=== PATIENT | female | born 1980 | race Caucasian/White ===

== ENCOUNTER 2024-02-05 19:04 | Emergency (ER) | payer BC, SELFPAY ==
[2024-02-05] MEDS: ATIVAN 2 MG IM (19:44)
[2024-02-05] MEDS: HALDOL 5 MG IM (19:44)
[2024-02-05 20:48] LABS: Hematocrit 35.9 % (37.0-47.0); Hemoglobin 12.6 g/dL (12.0-16.0); Mean Corp Hgb Conc. 35.1 g/dL (33.0-37.0); Mean Corpuscular Hgb 33.8 pg (27.0-31.0); Mean Corpuscular Volume 96.2 fL (81.0-99.0); Mean Platelet Volume 9.6 fL (7.4-10.4); Platelet Count 229 10^3/uL (130-400); Red Blood Cell Count 3.73 10^6/uL (4.20-5.40); Red Cell Dist. Width 11.9 % (11.5-14.5); White Blood Cell Count 6.2 10^3/uL (4.8-10.8)
[2024-02-05 21:05] LABS: Chloride 100 mmol/L (98-107); Potassium 3.2 mmol/L (3.5-5.1); Sodium 139 mmol/L (135-145)
[2024-02-05 21:06] LABS: ALT (SGPT) 23 U/L (0-35); AST (SGOT) 36 U/L (14-36); Acetaminophen < 10 ug/ml (10-30); Albumin 4.5 g/dl (3.5-5.0); Alcohol 36 mg/dl; Alkaline Phosphatase 39 U/L (38-126); Blood Urea Nitrogen 17 mg/dl (7-17); Calcium 9.4 mg/dl (8.4-10.2); Carbon Dioxide 21 mmol/L (22-30); Glucose 86 mg/dl (70-99); Salicylate < 1.0 mg/dl (2.0-20.0); Total Bilirubin 0.6 mg/dl (0.2-1.3); Total Protein 6.6 g/dl (6.3-8.2); eGFR > 60.00
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
[2024-02-05 21:23] VITALS: BP 91/56
[2024-02-05 23:34] LABS: HCG, Serum Qualitative Screen Negative
[2024-02-06 04:18] LABS: COVID-19 Antigen Negative (Negative)
[2024-02-06 05:30] VITALS: BP 97/75
== END 2024-02-06 05:31 ==
LOC: EMR 19:04
PROVIDERS: EMERGENCY PHYSICIAN Emergency Medicine
DX: F29 Unspecified psychosis not due to a substance or known physiological condition (principal)
CPT/HCPCS: 99285; 96372 ×2; 80053; 80143; 80179; 82077; 84703; 85027; 87811

== ENCOUNTER → 2024-05-07 11:34 | Outpatient (REF) | payer BC, SELFPAY | LOC: PAVMRI 11:34 | PROVIDERS: ATTENDING PHYSICIAN Nurse Practitioner Family; FAMILY PHYSICIAN Nurse Practitioner Family | DX: E22.1 Hyperprolactinemia (principal) | CPT/HCPCS: 70553; A9575 ==

== ENCOUNTER → 2024-06-30 14:38 | Outpatient (REF) | payer OTHER, SELFPAY ==
[2024-07-01 14:36] LABS: Mumps Virus IgG Positive; Rubeola (Measles) IgG Positive; Varicella Zoster IgG (VZV) Positive
[2024-07-01 18:34] LABS: Hepatitis B Surface Antibody Negative
[2024-07-01 19:13] LABS: Rubella Positive
== END ==
LOC: OHS 14:38
PROVIDERS: ATTENDING PHYSICIAN Nurse Practitioner Family
DX: Z23 Encounter for immunization (principal)
CPT/HCPCS: 36415; 86706; 86735; 86762; 86765; 86787

== ENCOUNTER 2024-11-30 14:53 | Emergency (ER) | payer BC, SELFPAY ==
[2024-11-30 14:58] VITALS: BP 152/94
[2024-11-30 15:51] LABS: % Basophils 1.2 % (0-2); % Eosinophils 0.8 % (0-6); % Immature Granulocytes 0.3 % (0-0.5); % Lymphocytes 32.9 % (20.5-51.1); % Neutrophils 57.8 % (42.2-75.2); Absolute Basophils 0.1 10^3/uL (0-0.2); Absolute Eosinophils 0.1 10^3/uL (0-0.7); Absolute Monocytes 0.4 10^3/uL (0.1-0.6); Absolute Neutrophils 3.5 10^3/uL (1.4-6.5); Hematocrit 41.1 % (37.0-47.0); Hemoglobin 14.1 g/dL (12.0-16.0); Mean Corp Hgb Conc. 34.3 g/dL (33.0-37.0); Mean Corpuscular Hgb 31.8 pg (27.0-31.0); Mean Corpuscular Volume 92.6 fL (81.0-99.0); Mean Platelet Volume 9.2 fL (7.4-10.4); Nucleated Red Blood Cells % 0 %; Platelet Count 274 10^3/uL (130-400); Red Blood Cell Count 4.44 10^6/uL (4.20-5.40); Red Cell Dist. Width 12.2 % (11.5-14.5)
[2024-11-30 16:12] LABS: ALT (SGPT) 15 U/L (0-35); AST (SGOT) 19 U/L (14-36); Albumin 5.1 g/dl (3.5-5.0); Alkaline Phosphatase 45 U/L (38-126); Blood Urea Nitrogen 19 mg/dl (7-17); Calcium 9.7 mg/dl (8.4-10.2); Carbon Dioxide 25 mmol/L (22-30); Chloride 100 mmol/L (98-107); Glucose 116 mg/dl (70-99); Potassium 3.9 mmol/L (3.5-5.1); Sodium 137 mmol/L (135-145); Total Bilirubin 0.9 mg/dl (0.2-1.3); Total Protein 7.3 g/dl (6.3-8.2); eGFR > 60.00
== END 2024-11-30 15:17 ==
LOC: EMR 14:53
PROVIDERS: EMERGENCY PHYSICIAN Emergency Medicine
DX: R51.9 Headache, unspecified (principal)
CPT/HCPCS: 80053; 85025

== ENCOUNTER 2024-11-30 15:27 | Emergency (ER) | payer SELFPAY ==
[2024-11-30 15:33] VITALS: BP 152/94
--- NOTE | 2024-11-30 18:29 | ED.GENMED ---
History of Present Illness
General
Chief Complaint: Headache
Source: patient
Exam Limitations: none
Time Seen by Provider: 11/30/24 18:07
History of Present Illness
History of Present Illness:
This is a 44 year old female that comes in with c/o headache. States that she has a headache across her forehead. State that she just has felt unwell. State that this started a couple of days ago. State that she has not taken anything for pain as
she doesn't like to take medication. Denies any fever, chills, chest pain, SOB, abd pain, nausea, vomiting, diarrhea, dizziness, urinary burning.
Past History
Past History
ED Past Medical History: Other (UTI,)
ED Past Surgical History: Gynecological (D&E Hysteroscopies X 2) and Other (Hernia repair)
Social History
Tobacco: Non-smoker
Alcohol: Occasional
Personal:
Living: with family
Review of Systems
Review of Systems
All Other Systems: ROS reviewed and negative except as documented in HPI and ROS
Constitutional: Reports no symptoms; Denies fever or chills
EENT: Reports no symptoms
Respiratory: Reports no symptoms; Denies cough or trouble breathing
Cardiac: Reports no symptoms; Denies chest pain
ABD/GI: Reports no symptoms; Denies abdominal pain, nausea, vomiting or diarrhea
: Reports no symptoms; Denies dysuria or urgency
Musculoskeletal: Reports no symptoms
Skin: Reports no symptoms
Neurological: Reports headache; Denies dizzy
Psychiatric: Reports no symptoms
Phy Exam
General Physical Exam
General Presentation: well appearing and no apparent distress
General age: appears stated age
General Skin: warm and dry
General Habitus: normal
General Mental: alert
General Hydration: appears well hydrated
ENT Exam
ENT Exam: TM's normal, pharynx normal and neck supple
Eye Exam
Eye Exam: EOMI
Cardiovascular Exam
Cardiovascular Exam: regular rate/rhythm, no edema, no murmur and normal peripheral pulses
Pulmonary Exam
Pulmonary Exam: lungs clear, no respiratory distress, no rales, chest non tender, no crackles, no rhonchi, no wheezing and no cough
Gastrointestinal Exam
Gastrointestinal Exam: normal bowel sounds, non tender, soft, no organomegaly, no pulsatile mass and non distended
Musculoskeletal Exam
Musculoskeletal Exam: full ROM and no edema
Skin Exam
Skin Exam: normal color, warm/dry, no rash and no petechia
Psychiatric Exam
Psychiatric Exam: normal mood/affect
Course
Orders/Labs/Results
Orders:
11/30/24 15:34
11/30/24 15:34
Vital Signs
Initial and Last Documented VS:
Initial Vital Signs
Temp Pulse Resp BP Pulse Ox
98.7 F 105 20 152/94 98
11/30/24 15:33 11/30/24 15:33 11/30/24 15:33 11/30/24 15:33 11/30/24 15:33
Last Documented Vital Signs
Temp Pulse Resp BP Pulse Ox
98.7 F 105 20 152/94 98
11/30/24 15:33 11/30/24 15:33 11/30/24 15:33 11/30/24 15:33 11/30/24 15:33
MDM/Problems Addressed
Differential Diagnosis Includes:
Headache, COVID.
MDM/Problems Addressed:
This is a 44 year old female that comes in with c/o headache across her forehead. States that she has felt unwell for the past couple of days. Patient states that she does not like to take medication and that sh called her to pick her up.
Explained to patient that if she is willing to stay a CT scan of the head would be done, IV fluids, blood work and medicate for pain. Patient refused all this. Explained to patient that she will need to follow up with the family doctor. Explained
that she can take Tylenol and Ibuprofen and alternate this for pain. Patient to return with any concerns.
Chronic conditions affecting care:
NA
Acute Exacerbation and/or Progression of Chronic Illness:
NA
*Pulse Oximetry
Patient hypoxic: no
*EKG
Interpreted by ED Provider?: NA
Rate: EKG- N/A
*Associate Professor Of [employer] Interpretation
Rate: Associate Professor [employer]- N/A
*Critical Care Note
Total Time (30-74mins, 75-104mins- exclusive of procedures): Not Applicable
ED Attending Note
-
Portions of this chart may have been created with voice recognition software.� Occasional wrong word or��sound alike� substitutions may have occurred due to the inherent limitations of voice recognition software.
Discharge Plan
Departure
Patient Disposition: Home (Routine Discharge)
Date of Disposition: 11/30/24
Time of Disposition: 18:29
Patient with high blood pressure during this ER visit?: Yes
Condition: Good
Covid-19: Not Applicable
Discharge Problem:
Headache
Instructions: Headache, Adult (DC), BLOOD PRESSURE
Activity Restrictions/Additional Instructions:
As discussed, you have been offered blood work and a CT scan and have decided to go home. Please follow up with the family doctor for further evaluation. You may use Tylenol 1000mg every 6 hours for pain and alternate with Ibuprofen 600mg every 6
hours with food. IF YOU HAVE ANY OTHER CONCERNS PLEASE RETURN TO THE EMERGENCY ROOM.
Interventions
Interventions:
*Risk Screen - Suicide Last Done: 11/30/24 15:28
*General Assessment Last Done: 11/30/24 15:28
*Neglect/Abuse Screening Last Done: 11/30/24 15:28
Discharge Date and Time
Print Language: [place]
== END 2024-11-30 18:45 | disposition home or self-care (01) ==
LOC: EMR 15:27
PROVIDERS: EMERGENCY PHYSICIAN Emergency Medicine
DX: R51.9 Headache, unspecified (principal); Z87.440 Personal history of urinary (tract) infections
CPT/HCPCS: 99282